=== PATIENT | male | born 2000 | race Caucasian/White ===

== ENCOUNTER 2021-01-02 21:13 | Inpatient (IN) | payer OTHER ==
[~2021-01-02] VITALS: Ht 165.1 cm; Wt 58.5 kg
[2021-01-02 21:17] VITALS: BP 155/77
[2021-01-02 22:37] LABS: URINE AMPHETAMINES > 1000 (1000ng/ml); URINE BARBITURATES < 200 (200ng/ml); URINE BENZODIAZEPINES < 200 (200ng/ml); URINE CANNABINOIDS (THC) > 50 (50ng/ml); URINE COCAINE < 300 (300ng/ml); URINE METHADONE < 300 (300ng/ml); URINE OPIATES < 300 (300ng/ml)
[2021-01-02 22:39] LABS: URINE PHENCYCLIDINE < 25 (25ng/ml)
[2021-01-02 22:40] LABS: BASO # 0.1 10*3/uL (0.0-0.1); BASO % 0.2 % (0.0-1.0); EOS # 0.1 10*3/uL (0.0-0.4); EOS % 0.5 % (1.0-4.0); HEMATOCRIT 47.7 % (42.0-52.0); LYMPH # 1.6 10*3/uL (1.3-4.4); LYMPH % 7.4 % (27.0-41.0); MEAN CELL VOLUME 91.4 fl (80.0-94.0); MEAN CORPUSCULAR HGB 30.1 pg (27.0-31.0); MEAN CORPUSCULAR HGB CONC 32.9 g/dl (33.0-37.0); MEAN PLATELET VOLUME 9.5 fl (9.6-12.3); MONO # 0.7 10*3/uL (0.1-1.0); MONO % 3.4 % (3.0-9.0); NEUT # 18.9 10*3/uL (2.3-7.9); NEUT % 88.1 % (47.0-73.0); PLATELET COUNT AUTOMATED 266 10*3/uL (130-400); RED BLOOD COUNT 5.22 10*6/uL (4.50-5.90); RED CELL DISTRI WIDTH 11.4 % (0-14.5); WHITE BLOOD COUNT 21.5 10*3/uL (4.8-10.8)
[2021-01-02 22:57] LABS: ALBUMIN 2.8 gm/dl (3.1-4.5); ALKALINE PHOSPHATASE 54 U/L (45-117); BUN 14 mg/dl (7-24); CHLORIDE 112 mmol/L (98-107); CREATININE 1.17 mg/dL (0.70-1.30); SGOT/AST 24 IU/L (3-35); SGPT/ALT 23 U/L (12-78); SODIUM 126 mmol/L (136-145); TOTAL PROTEIN 8.1 gm/dL (6.4-8.2)
[2021-01-02 22:58] LABS: POTASSIUM 9.2 mmol/L (3.5-5.1)
[2021-01-02 23:42] VITALS: BP 122/77
[2021-01-03 01:31] VITALS: BP 113/61
[2021-01-03 06:37] VITALS: BP 103/60
[2021-01-03 07:25] VITALS: BP 110/69
[2021-01-03 08:52] LABS: BASO % 0.3 % (0.0-1.0); EOS # 0.1 10*3/uL (0.0-0.4); EOS % 1.1 % (1.0-4.0); HEMATOCRIT 42.4 % (42.0-52.0); LYMPH # 2.3 10*3/uL (1.3-4.4); LYMPH % 17.4 % (27.0-41.0); MEAN CELL VOLUME 89.6 fl (80.0-94.0); MEAN CORPUSCULAR HGB 29.6 pg (27.0-31.0); MEAN PLATELET VOLUME 9.1 fl (9.6-12.3); MONO # 0.8 10*3/uL (0.1-1.0); MONO % 6.2 % (3.0-9.0); NEUT # 9.8 10*3/uL (2.3-7.9); NEUT % 74.6 % (47.0-73.0); PLATELET COUNT AUTOMATED 282 10*3/uL (130-400); RED BLOOD COUNT 4.73 10*6/uL (4.50-5.90); RED CELL DISTRI WIDTH 11.4 % (0-14.5); WHITE BLOOD COUNT 13.1 10*3/uL (4.8-10.8)
[2021-01-03 09:07] LABS: ALBUMIN 3.9 gm/dl (3.1-4.5); ALKALINE PHOSPHATASE 50 U/L (45-117); BUN 11 mg/dl (7-24); CHLORIDE 107 mmol/L (98-107); CREATININE 1.01 mg/dL (0.70-1.30); POTASSIUM 3.4 mmol/L (3.5-5.1); SGOT/AST 22 IU/L (3-35); SGPT/ALT 24 U/L (12-78); TOTAL PROTEIN 7.2 gm/dL (6.4-8.2)
[2021-01-03 09:14] LABS: SODIUM 141 mmol/L (136-145)
[2021-01-03 09:40] LABS: BILIRUBIN Negative (Negative); BLOOD 1+ (Negative); CLARITY Clear (Clear); COLOR Yellow (Yellow); GLUCOSE Negative (Negative); KETONE Trace (Negative); LEUKO ESTERASE Trace (Negative); NITRITE Negative (Negative); PH 6.5 (4.5-8.0); SPECIFIC GRAVITY 1.025 (1.001-1.030)
[2021-01-03 09:59] LABS: MUCOUS 2+; RBC 16-20 rbc/hpf (0-2)
[2021-01-03 11:00] VITALS: BP 120/75
[2021-01-03 12:00] VITALS: BP 120/75
[2021-01-03 14:59] LABS: POTASSIUM 4.2 mmol/L (3.5-5.1)
[2021-01-03 20:00] VITALS: BP 103/69
[2021-01-04] VITALS: BP 104/82
[2021-01-04 08:00] VITALS: BP 105/53
[2021-01-04 12:00] VITALS: BP 100/58
[2021-01-04 16:00] VITALS: BP 95/45
[2021-01-04 17:42] VITALS: BP 106/54
[2021-01-04 20:50] VITALS: BP 118/64
[2021-01-05] VITALS: BP 93/50
[2021-01-05 06:20] VITALS: BP 100/52
[2021-01-05 08:00] VITALS: BP 104/55
[2021-01-05 12:00] VITALS: BP 121/71
[2021-01-05 16:00] VITALS: BP 99/49
[2021-01-05 20:00] VITALS: BP 103/58
[2021-01-06] VITALS: BP 102/51
[2021-01-06 06:24] LABS: BASO # 0.1 10*3/uL (0.0-0.1); BASO % 0.7 % (0.0-1.0); EOS # 0.3 10*3/uL (0.0-0.4); EOS % 3.5 % (1.0-4.0); HEMATOCRIT 39.7 % (42.0-52.0); LYMPH # 2.5 10*3/uL (1.3-4.4); LYMPH % 35.4 % (27.0-41.0); MEAN CELL VOLUME 91.7 fl (80.0-94.0); MEAN CORPUSCULAR HGB 29.1 pg (27.0-31.0); MEAN CORPUSCULAR HGB CONC 31.7 g/dl (33.0-37.0); MEAN PLATELET VOLUME 9.2 fl (9.6-12.3); MONO # 0.6 10*3/uL (0.1-1.0); MONO % 8.4 % (3.0-9.0); NEUT # 3.7 10*3/uL (2.3-7.9); NEUT % 51.7 % (47.0-73.0); PLATELET COUNT AUTOMATED 238 10*3/uL (130-400); RED BLOOD COUNT 4.33 10*6/uL (4.50-5.90); RED CELL DISTRI WIDTH 10.9 % (0-14.5); WHITE BLOOD COUNT 7.1 10*3/uL (4.8-10.8)
[2021-01-06 06:38] LABS: CREATININE 0.82 mg/dL (0.70-1.30)
[2021-01-06 08:00] VITALS: BP 122/62
[2021-01-06 12:00] VITALS: BP 127/60
[2021-01-06] MEDS ORDERED: ATARAX,VISTARIL50 MG PO (15:26)
[2021-01-06 16:00] VITALS: BP 96/73
== END 2021-01-06 19:37 | disposition home or self-care (01) | DRG 426 ==
LOC: ED 21:13 → 5E 01-03 00:04 → EDHOLD 01-03 00:04 → 5E 01-03 09:17
PROVIDERS: Emergency Medicine; Internal Medicine; Internal Medicine Nephrology; Student in an Organized Health Care Education/Training Program; ADMIT Internal Medicine; ATTEND Internal Medicine
DX: E87.1 Hypo-osmolality and hyponatremia (principal); F13.239 Sedative, hypnotic or anxiolytic dependence with withdrawal, unspecified; R56.9 Unspecified convulsions; F11.23 Opioid dependence with withdrawal; F12.10 Cannabis abuse, uncomplicated; F31.9 Bipolar disorder, unspecified; F17.210 Nicotine dependence, cigarettes, uncomplicated; Z71.6 Tobacco abuse counseling; E43 Unspecified severe protein-calorie malnutrition; D72.810 Lymphocytopenia; F15.10 Other stimulant abuse, uncomplicated; G44.209 Tension-type headache, unspecified, not intractable; Z91.013 Allergy to seafood; E44.1 Mild protein-calorie malnutrition; G93.41 Metabolic encephalopathy